=== PATIENT | female | born 1970 | race Caucasian/White ===

== ENCOUNTER 2017-01-02 17:10 | Observation (INO) | payer OTHER ==
--- NOTE | 2017-01-02 18:18 | ED ---
General Adult HPI - General Chief complaint: Extremity Problem,Nontraumatic Stated complaint: rt leg pain Time Seen by Provider: 01/02/17 17:49 Source: patient, RN notes reviewed Mode of arrival: ambulatory Limitations: no limitations - History of Present Illness Initial comments: Patient is a 46-year-old female presents emergency room for right sided flank/ leg pain. Patient states she has a history of fibromyalgia. Patient states she 's been experiencing all over body pain. Patient denies taking any pain medications. Patient states that she's been having issues with her right low back. Patient states the pain radiates into her right leg. 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 Patient states she had surgery about 5 years ago on her kidneys to place a stent. Patient states the plant stent was placed on her right side. Patient states she went to her primary care provider today and they did blood work and sent her home. Patient states that she's been having worsening pain on the right side that radiates into her leg and thought she should be evaluated. Patient states she has been having issues with not urinating as much as usual. Patient states she drinks a lot of water and only urinates a few times a day. Patient states she is supposed to follow-up with a oncology pharmacist in the next few weeks. Patient does state she feels like she has a pressure sensation where her bladder is. Patient denies any other surgeries. Patient denies chest pain or shortness of breath. Patient denies headache or dizziness. Patient denies any pain or burning during urination or blood in urine. - Related Data Home Medications Medication Instructions Recorded Confirmed Clindamycin Topical Soln 1 applic TOPICAL BID 01/02/17 01/02/17 [Cleocin-T Topical Soln] Lisinopril-Hctz 20-12.5 mg 1 tab PO DAILY 01/02/17 01/02/17 [Zestoretic 20-12.5] Loratadine [Claritin] 10 mg PO HS 01/02/17 01/02/17 Ranitidine HCl 150 mg PO DAILY 01/02/17 01/02/17 Allergies Allergy/AdvReac Type Severity Reaction Status Date / Time meperidine [From Demerol] AdvReac Nausea & Verified 01/02/17 22:03 Vomiting Review of Systems ROS Statement: Those systems with pertinent positive or pertinent negative responses have been documented in the HPI. ROS Other: All systems not noted in ROS Statement are negative. Past Medical History Additional Past Medical History / Comment(s): fibromylagia, lupus History of Any Multi-Drug Resistant Organisms: None Reported Past Surgical History: Orthopedic Surgery Additional Past Surgical History / Comment(s): kidney surgery Past Psychological History: No Psychological Hx Reported Smoking Status: Never smoker Past Alcohol Use History: None Reported Past Drug Use History: None Reported General Exam - General Exam Comments Initial Comments: Sitting in exam room, no acute distress. Limitations: no limitations General appearance: alert, in no apparent distress Head exam: Present: atraumatic, normocephalic, normal inspection Eye exam: Present: normal appearance ENT exam: Present: normal exam Neck exam: Present: normal inspection Respiratory exam: Present: normal lung sounds bilaterally. Absent: respiratory distress Cardiovascular Exam: Present: regular rate, normal rhythm, normal heart sounds GI/Abdominal exam: Present: soft, normal bowel sounds. Absent: distended, tenderness, guarding, rebound, rigid Extremities exam: Present: normal inspection Back exam: Present: normal inspection, CVA tenderness (R) Neurological exam: Present: alert, oriented X3 Psychiatric exam: Present: normal affect, normal mood Skin exam: Present: warm, intact Course Vital Signs 01/02/17 01/02/17 01/02/17 17:44 20:52 22:18 Temperature 98.5 F 98.0 F 97.3 F L Pulse Rate 77 68 70 Respiratory 18 18 18 Rate Blood Pressure 155/73 111/65 115/56 O2 Sat by Pulse 99 98 99 Oximetry Medical Decision Making - Medical Decision Making Patient is a 46-year-old female since emergency room for evaluation of right- sided pain. CT abdomen and pelvis ordered to rule out any obstructing stones. CT abdomen/pelvis results mentioned UPJ configuration. Discussed CT results with Radiologist, Jonnie Huerta, and he cannot totally rule out UPJ obstruction without IV contrast with delayed imaging. Discussed results with patient. Patient agreed to another CT abdomen/pelvis with IV contrast. CT abdomen/pelvis with IV contrast shows evidence for right UPJ obstruction. Patient also noted to have leukocytosis. Case discussed with Dr. Riojas. Dr. Riojas discussed case with Dr. Nathan who agreed to admit patient. Patient will be started on 1 g of Rocephin. Patient to consult with urology. Plan discussed with patient. - Lab Data Result diagrams: 01/02/17 18:34 01/02/17 18:34 Lab Results 01/02/17 01/02/17 01/02/17 Range/Units 18:34 18:34 19:10 WBC 13.5 H (3.8-10.6) k/uL RBC 5.76 H (3.80-5.40) m/uL Hgb 14.4 (11.4-16.0) gm/dL Hct 44.1 (34.0-46.0) % MCV 76.6 L (80.0-100.0) fL MCH 25.1 (25.0-35.0) pg MCHC 32.7 (31.0-37.0) g/dL RDW 14.0 (11.5-15.5) % Plt Count 259 (150-450) k/uL Neutrophils % 74 % Lymphocytes % 19 % Monocytes % 3 % Eosinophils % 1 % Basophils % 1 % Neutrophils # 10.0 H (1.3-7.7) k/uL Lymphocytes # 2.6 (1.0-4.8) k/uL Monocytes # 0.5 (0-1.0) k/uL Eosinophils # 0.2 (0-0.7) k/uL Basophils # 0.1 (0-0.2) k/uL Hypochromasia Slight Sodium 139 (137-145) mmol/L Potassium 4.4 (3.5-5.1) mmol/L Chloride 102 (98-107) mmol/L Carbon Dioxide 24 (22-30) mmol/L Anion Gap 13 mmol/L BUN 21 H (7-17) mg/dL Creatinine 0.85 (0.52-1.04) mg/dL Est GFR (MDRD) Af Amer >60 (>60 ml/min/1.73 sqM) Est GFR (MDRD) Non-Af >60 (>60 ml/min/1.73 sqM) Glucose 90 (74-99) mg/dL Calcium 9.8 (8.4-10.2) mg/dL Total Bilirubin 0.6 (0.2-1.3) mg/dL AST 25 (14-36) U/L ALT 39 (9-52) U/L Alkaline Phosphatase 109 (38-126) U/L Total Protein 7.8 (6.3-8.2) g/dL Albumin 4.4 (3.5-5.0) g/dL Urine Color Yellow Urine Appearance Clear (Clear) Urine pH 5.0 (5.0-8.0) Ur Specific [place] 1.014 (1.001-1.035) Urine Protein Negative (Negative) Urine Glucose (UA) Negative (Negative) Urine Ketones Negative (Negative) Urine Blood Small H (Negative) Urine Nitrite Negative (Negative) Urine Bilirubin Negative (Negative) Urine Urobilinogen <2.0 (<2.0) mg/dL Ur Leukocyte Esterase Small H (Negative) Urine RBC 1 (0-5) /hpf Urine WBC 5 (0-5) /hpf Ur Squamous Epith Cells 1 (0-4) /hpf Amorphous Sediment Rare H (None) /hpf Hyaline Casts 1 (0-2) /lpf Urine Mucus Rare H (None) /hpf - Radiology Data Radiology results: report reviewed, image reviewed Disposition Clinical Impression: Obstruction of right ureteropelvic junction (UPJ), Leukocytosis Disposition: ADMITTED IP TO THIS [facility] Condition: Stable Referrals: Corina Ribeiro MD [Primary Care Provider] - 1-2 days Decision Date: 01/02/17
[2017-01-02 18:45] LABS: Basophils # (A) 0.1 k/uL (0-0.2); Basophils % (A) 1 %; CHCM 31.4; Eosinophils # (A) 0.2 k/uL (0-0.7); Eosinophils % (A) 1 %; HCT 44.1 % (34.0-46.0); HDW 2.68; HGB 14.4 gm/dL (11.4-16.0); Hypochromasia Slight; Luc # (Auto) 0.21; Luc % (Auto) 2; Lymphocytes # (A) 2.6 k/uL (1.0-4.8); Lymphocytes % (A) 19 %; MCH 25.1 pg (25.0-35.0); MCHC 32.7 g/dL (31.0-37.0); MCV 76.6 fL (80.0-100.0); Mean Platelet Volume 7.6; Monocytes # (A) 0.5 k/uL (0-1.0); Monocytes % (A) 3 %; Neutrophils % (A) 74 %; RBC 5.76 m/uL (3.80-5.40); WBC 13.5 k/uL (3.8-10.6); WBC (Perox) 13.18
[2017-01-02 19:00] LABS: ALT 39 U/L (9-52); AST 25 U/L (14-36); Alkaline Phosphatase 109 U/L (38-126); Anion Gap 13 mmol/L; Blood Urea Nitrogen 21 mg/dL (7-17); Calcium 9.8 mg/dL (8.4-10.2); Carbon Dioxide 24 mmol/L (22-30); Chloride 102 mmol/L (98-107); Glucose 90 mg/dL (74-99); Non-African American GFR(MDRD) >60 (>60 ml/min/1.73 sqM); Potassium 4.4 mmol/L (3.5-5.1); Sodium 139 mmol/L (137-145); Total Bilirubin 0.6 mg/dL (0.2-1.3); Total Protein 7.8 g/dL (6.3-8.2)
[2017-01-02 19:23] LABS: Amorphous Sediment,Urine Rare /hpf; Appearance,Urine Clear (Clear); Bilirubin,Urine Negative (Negative); Glucose,Urine (UA) Negative (Negative); Ketones,Urine Negative (Negative); Leukocyte Esterase,Urine Small (Negative); Mucus,Urine Rare /hpf; Nitrite,Urine Negative (Negative); Particle Count 1983; Protein,Urine Negative (Negative); RBC,Urine 1 /hpf (0-5); Specific Gravity,Urine 1.014 (1.001-1.035); Squamous Epithelial Cell,Urine 1 /hpf (0-4); UA Billing (MACRO vs. MICRO) MICRO; Urobilinogen,Urine <2.0 mg/dL (<2.0); WBC,Urine 5 /hpf (0-5)
[2017-01-02] MEDS ORDERED: HYDROmorphone 1 MG/ML 1 ML SYRINGE IVP STA (19:58)
--- NOTE | 2017-01-02 20:50 | CT ---
EXAMINATION TYPE: CT abdomen pelvis wo con DATE OF EXAM: 01/02/2017 8:19 PM COMPARISON: NONE AVAILABLE HISTORY: c/o difficulty with urination, right lower extremity pain, hx of lupus CT DLP: 686.1 mGycm. Automated exposure control for dose reduction was used. TECHNIQUE: Helical acquisition of images was performed from the lung bases through the pelvis. FINDINGS: LUNG BASES: No significant abnormality is appreciated. LIVER/GB: No significant abnormality is appreciated. PANCREAS: No significant abnormality is seen. SPLEEN: No significant abnormality is seen. ADRENALS: No significant abnormality is seen. 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 1. There is prominence to the left sided extrarenal collecting system, but no maryuri left hydronephros is or hydroureter. 2. On the right, there is moderate hydronephrosis present in the extrarenal collecting system - with caliber change at the UPJ such that the right ureter is collapsed throughout its extent. These findin gs are consistent with right-sided UPJ configuration. 3. Subtle intraparenchymal calcifications are noted, but no uroliths and no ureteral calcifications o r bladder calcifications. RETROPERITONEAL ADENOPATHY: None visualized REPRODUCTIVE ORGANS: No significant abnormality is seen PELVIC ADENOPATHY: None visualized. OSSEOUS STRUCTURES: No significant abnormality is seen. BOWEL: No significant abnormality is seen. ANTERIOR ABDOMINAL WALL: The anterior abdominal wall is intact. 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
[2017-01-02] MEDS ORDERED: RX INFO: IV CONTRAST WAS GIVEN 1 EACH MISC MISCELLANE PRN (21:13)
[2017-01-02] MEDS ORDERED: ONDANSETRON 4 MG/2 ML VIAL IVP STA (22:14)
--- NOTE | 2017-01-02 22:21 | CT ---
EXAMINATION TYPE: CT abdomen pelvis w con DATE OF EXAM: 01/02/2017 9:54 PM COMPARISON: Precontrast CT earlier today HISTORY: Right-sided abdominal pain with difficulty urinating, hx of renal stents CT DLP: 2401 mGycm. Automated exposure control for dose reduction was used. TECHNIQUE: Helical CT of the kidneys ureters and bladder was obtained for nephrogram, 5 minute urogr am and delayed minute urogram phase following intravenous contrast administration with 100 mL of Omni paque 300. FINDINGS: KIDNEYS URETERS AND BLADDER: The nephrogram phase of renal parenchymal contrast enhancement is unrema rkable. On the 5 minute urogram images there was delayed opacification of the right upper collecting system. On the 10 minute urogram images the left-sided ureter opacifies throughout its extent and a left uret eral jet is visualized within the urinary bladder. However, there is no definite contrast opacificati on of the right ureter from the upper renal moiety or the right ureter from the lower renal moiety. T his delay in contrast excretion is consistent with right-sided UPJ obstruction, which appears mild-mo derate in degree. LUNG BASES: No significant abnormality is appreciated. LIVER/GB: No significant abnormality is appreciated. PANCREAS: No significant abnormality is seen. SPLEEN: No significant abnormality is seen. ADRENALS: No significant abnormality is seen. RETROPERITONEAL ADENOPATHY: None visualized REPRODUCTIVE ORGANS: No significant abnormality is seen PELVIC ADENOPATHY: None visualized. OSSEOUS STRUCTURES: No significant abnormality is seen. BOWEL: No significant abnormality is seen. IMPRESSION: FINDINGS CONSISTENT WITH RIGHT-SIDED UPJ OBSTRUCTION, IN THE SETTING OF HORSESHOE KIDNEY.
[2017-01-02] MEDS ORDERED: ONDANSETRON 4 MG/2 ML VIAL IVP PRN (22:36)
[2017-01-02] MEDS ORDERED: ACETAMINOPHEN TAB 325 MG TAB PO PRN (22:36)
[2017-01-02] MEDS ORDERED: NALOXONE 0.4 MG/ML 1 ML VIAL IV PRN (22:36)
[2017-01-02] MEDS: SODIUM CHLORIDE 0.9% 1,000 ML IV SCH (23:00)
[2017-01-02] MEDS: HYDROmorphone 1 MG/ML 1 ML SYRINGE IV PRN (23:44)
[2017-01-03 00:09] VITALS: BMI 36.5
[2017-01-03] MEDS: HYDROmorphone 1 MG/ML 1 ML SYRINGE IV PRN ×3 (03:47→12:57)
[2017-01-03 07:27] LABS: Basophils # (A) 0.1 k/uL (0-0.2); Basophils % (A) 1 %; CH 23.8; CHCM 30.7; Eosinophils # (A) 0.2 k/uL (0-0.7); Eosinophils % (A) 2 %; HCT 37.9 % (34.0-46.0); HDW 2.66; HGB 12.1 gm/dL (11.4-16.0); Hypochromasia Moderate; Luc # (Auto) 0.22; Luc % (Auto) 2; Lymphocytes # (A) 2.8 k/uL (1.0-4.8); Lymphocytes % (A) 26 %; MCH 24.8 pg (25.0-35.0); MCHC 31.9 g/dL (31.0-37.0); MCV 77.6 fL (80.0-100.0); Mean Platelet Volume 7.1; Monocytes # (A) 0.4 k/uL (0-1.0); Monocytes % (A) 4 %; Neutrophils # (A) 6.9 k/uL (1.3-7.7); Neutrophils % (A) 66 %; RBC 4.89 m/uL (3.80-5.40); RDW 14.1 % (11.5-15.5); WBC 10.6 k/uL (3.8-10.6); WBC (Perox) 10.98
[2017-01-03 07:32] LABS: ALT 36 U/L (9-52); AST 19 U/L (14-36); Alkaline Phosphatase 75 U/L (38-126); Anion Gap 12 mmol/L; Blood Urea Nitrogen 20 mg/dL (7-17); Calcium 8.9 mg/dL (8.4-10.2); Carbon Dioxide 22 mmol/L (22-30); Chloride 104 mmol/L (98-107); Glucose 82 mg/dL (74-99); Non-African American GFR(MDRD) >60 (>60 ml/min/1.73 sqM); Sodium 138 mmol/L (137-145); Total Bilirubin 0.5 mg/dL (0.2-1.3); Total Protein 6.3 g/dL (6.3-8.2)
[2017-01-03] MEDS: SODIUM CHLORIDE 0.9% 1,000 ML IV SCH (09:52)
--- NOTE | 2017-01-03 13:08 | P.HPIM ---
History of Present Illness H&P Date: 01/03/17 (Discharge summary as well) Chief Complaint: Suprapubic pain 46-year-old female with history of a horseshoe kidney status post right-sided hydronephrosis and a nephrostomy placement in the past comes into the hospital with complaints of generalized pain in her lower abdomen and shooting pains down her right lower extremity. Patient states that she was not able to walk with a significant amount of pain in her right lower extremity. Patient states that when she raises her leg exacerbates pain and came into the emergency room for ongoing care. Incidentally patient underwent a computed tomography scan of the abdomen and pelvis for workup of this suprapubic pain which appears to be chronic as patient did state to have a horseshoe kidney patient was noted to have some changes of right-sided hydronephrosis. Kidney function appears to be stable. There is no signs of infection on the UA. Patient denies having any urinary urgency frequency, fevers, chills, nausea, vomiting, exacerbated abdominal pain in the recent times. Patient apparently has a long history of proteinuria. She underwent a lot of this workup in [facility] in the [facility] thereafter has been seeing a physician out of [place] system. 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 Patient also complains of pain in her left and right shoulder especially with raising her hands above her shoulder. Review of Systems All systems: negative (Noted in HPI) Past Medical History Past Medical History: Fibromyalgia, Hypertension, Skin Disorder Additional Past Medical History / Comment(s): lupus History of Any Multi-Drug Resistant Organisms: None Reported Past Surgical History: Orthopedic Surgery Additional Past Surgical History / Comment(s): kidney surgery Past Psychological History: No Psychological Hx Reported Smoking Status: Never smoker Past Alcohol Use History: None Reported Past Drug Use History: None Reported - Past Family History Father Additional Family Medical History / Comment(s): Grandfather from a heart attack, aunt has breast cancer, and grandmother had COPD and type 2 diabetes. Medications and Allergies Home Medications Medication Instructions Recorded Confirmed Type Clindamycin Topical Soln 1 applic TOPICAL BID 01/02/17 01/02/17 History [Cleocin-T Topical Soln] Lisinopril-Hctz 20-12.5 mg 1 tab PO DAILY 01/02/17 01/02/17 History [Zestoretic 20-12.5] Loratadine [Claritin] 10 mg PO HS 01/02/17 01/02/17 History Ranitidine HCl 150 mg PO DAILY 01/02/17 01/02/17 History Allergies Allergy/AdvReac Type Severity Reaction Status Date / Time meperidine [From Demerol] AdvReac Nausea & Verified 01/02/17 22:03 Vomiting Physical Exam Vitals: Vital Signs Temp Pulse Resp BP Pulse Ox 01/03/17 08:35 97.3 F L 60 20 111/62 98 01/03/17 03:45 97.9 F 66 18 120/63 99 01/02/17 23:30 97.3 F L 68 18 124/69 100 Intake and Output 01/02/17 01/03/17 01/03/17 22:59 06:59 14:59 Intake Total 120 Balance 120 Intake: Oral 120 Other: Voiding Method Toilet # Voids 1 Weight 93.6 kg Physical exam Gen. appearance oriented 3 in no distress Neck is supple no JVD Lungs good air entry clear to auscultation no rhonchi or wheezing Heart S1-S2 heard regular rate and rhythm no murmurs appreciated Abdomen is soft nontender no organomegaly bowel sounds are intact some degree of tenderness in the suprapubic region Previous surgical scars noted Musculoskeletal there is definitely decreased range of motion of both the shoulders bilaterally more severe on the left side. Point tenderness noted superiorly around the shoulder joint consistent with supraspinatus tendinitis. Straight leg test is positive on the right lower extremity Neurologically cranial nerves II-12 grossly intact no focal motor or sensory deficits noted Skin no abnormalities appreciated Results CBC & Chem 7: 01/03/17 06:48 01/03/17 06:48 Labs: Abnormal Lab Results - Last 24 Hours (Table) 01/03/17 01/03/17 Range/Units 06:48 06:48 MCV 77.6 L (80.0-100.0) fL MCH 24.8 L (25.0-35.0) pg BUN 20 H (7-17) mg/dL Albumin 3.4 L (3.5-5.0) g/dL Thrombosis Risk Factor Assmnt - Choose All That Apply Each Factor Represents 1 point: Age 41-60 years, Obesity (BMI >25) Thrombosis Risk Factor Assessment Total Risk Factor Score: 2 Thrombosis Risk Factor Assessment Level: Low Risk Assessment and Plan Plan: #1 chronic right-sided hydronephrosis in a patient with horseshoe kidney #2 diagnosis of fibroid myalgia #3 new diagnosis of cutaneous lupus #4 sciatic on the right side #5 bilateral supraspinatus tendinitis #6 hypertension 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 Plan Patient was evaluated by urologist the hydronephrosis apparently was described as chronic. Patient is to continue FIORDALIZA inhibitor for chronic proteinuria that was noted on a prior UA. To continue the same medications. In regards to sciatica patient will be started on fibromyalgia. Patient is also going to start taking oral steroids for cutaneous lupus including a steroid cream and antibiotic cream. Patient is to follow-up with a change control manager and appointment will be made made with Dr. Brink. This was discussed with the patient exercises for the supraspinatus tendinitis were discussed with the patient Patient does not currently work. Did recommend not to use any NSAIDs at this time which could diminish her kidney function. Patient is discharged home in a stable condition
[2017-01-03 13:19] VITALS: BP 116/61; PULSE 62; RESP 16; TEMP 97.7
--- NOTE | 2017-01-03 13:23 | CONS ---
DATE OF CONSULTATION: 01/03/2017 REASON FOR CONSULTATION: Hydronephrosis. Patient is 46-year-old female admitted through the emergency room on 01/02 for evaluation of right flank and right leg pain. Patient also said she had some difficulty in initiating her urine flow and did not feel that she was emptying normally. She was evaluated in the emergency room and had both a noncontrast CT scan of the abdomen and pelvis and a CT scan of the abdomen and pelvis with IV contrast. Patient has known history of horseshoe kidneys. The CT scan showed evidence of mild to moderate right-sided hydronephrosis. The patient was started on Rocephin and was admitted for further evaluation. Since her admission yesterday, the patient says that she actually feels better as far as her right-sided pain. She no longer has any difficulty voiding. She denied any dysuria or hematuria prior to admission and says she has not had a urinary tract infection in several months. Patient says she was diagnosed with horseshoe kidneys at the age of 18 while she was in [place]. She was treated at [facility] and initially was suspected to have appendicitis. She was then found to have hydronephrosis and said she had a percutaneous nephrostomy tube that was left in place for nearly 5 years. She said she also had a double-J stent placed but was uncertain when this was removed. She has not been in [place] for 10 years. She was seen by Dr. Deutsch in August 2016. He set up a CT urogram and a MAG3 renogram. Patient says that these were done in [facility], but she is uncertain as to the results. She says she has an appointment to see Dr. Hansen on 01/12. She also says she has an appointment to see Dr. Brink. Patient's past medical history is significant in regard to fibromyalgia and benign hypertension. Medications on admission included Zestoretic, ranitidine and Claritin. She is allergic to DEMEROL. Review of systems is significant mainly in regard to the above. Patient complained of pain in her right arm, pain on the right side of her head as well as the right-sided abdominal and leg pain at the time of admission, most of this has improved. Physical exam reveals an overweight 46-year-old female who is alert and oriented. Afebrile. Blood pressure 111/62. HEENT: No supraclavicular or cervical adenopathy. CHEST: Breathing is unlabored. ABDOMEN: Obese. No focal tenderness. There is no flank tenderness to palpation. Laboratory evaluation on admission included a white blood count of 13,500. Urinalysis showed a small amount of leukocyte esterase and hemoglobin but only 1 red cell and 5 white blood cells, some mucus was also noted. BUN/creatinine on 01/02 was 21/0.85. BUN/creatinine today is 20/0.81. I personally reviewed the patient's CT scan of the abdomen and pelvis, which was performed with and without IV contrast. The patient has horseshoe kidneys with what appears to be chronic bilateral hydronephrosis. The drainage on the right side appears to be worse than the left but it is unclear whether this a chronic finding. It is also unclear whether there is any obstruction, which remains as the patient may have had a procedure done on the ureteropelvic junction at the age of 18. RECOMMENDATION: The patient has an appointment to be evaluated by another urologist on 01/12 and I do not feel that she needs further urologic evaluation prior to that. I told her she should take a copy of her most recent CT scan on a DVD so that her urologist can compare it with the previous studies done in August. Thank you for allowing me to participate in the care of this patient. JOHANNE
== END 2017-01-03 16:03 | disposition home or self-care (01) ==
LOC: EC 17:10 → 6PED 22:45
PROVIDERS: ADMIT Internal Medicine; ATTEND Internal Medicine
DX: N13.1 Hydronephrosis with ureteral stricture, not elsewhere classified (principal); Q63.1 Lobulated, fused and horseshoe kidney; M54.31 Sciatica, right side; D72.829 Elevated white blood cell count, unspecified; E66.3 Overweight; I10 Essential (primary) hypertension; L98.9 Disorder of the skin and subcutaneous tissue, unspecified; M77.9 Enthesopathy, unspecified; M79.7 Fibromyalgia; Q38.5 Congenital malformations of palate, not elsewhere classified; Z88.5 Allergy status to narcotic agent; M79.604 Pain in right leg; Z79.899 Other long term (current) drug therapy; Z79.2 Long term (current) use of antibiotics; R10.30 Lower abdominal pain, unspecified; R80.9 Proteinuria, unspecified
CPT/HCPCS: 96375 ×3; 99284 ×2; 51798; 36415; 80053 ×2; 85025 ×2; 81001; 74176; 74177; G0378 ×2; J2405; J0696; J1170 ×2; Q9967; 96361; 96376

== ENCOUNTER → 2018-03-07 | Outpatient (CLI) | payer OTHER ==
[~2018-03-07] MED LIST: FUROSEMIDE 10 MG/ML 2 ML VIAL IV ONE
--- NOTE | 2018-03-08 13:04 | NM ---
EXAMINATION TYPE: NM lasix renogram DATE OF EXAM: 03/08/2018 COMPARISON: NONE HISTORY: Horseshoe kidney. History of renal stones. Difficulty urinating. Following administration of 9.3 mCi Tc 99m MAG3 with 20mg Lasix. Immediate images post injection FINDINGS: Left: 48.8 %. Right: 51.2 %. Max renal flow left: 19 minutes. Max renal flow right: 51.2 minutes. Satisfactory accumulation of radiotracer within both renal collecting systems. After the administrati on of Lasix, there is prompt excretion from both collecting systems. T 1/2 left: unable to determine T 1/2, kidneys never excreted to T1/2 during 30 minute acquisition T 1/2 right: unable to determine T 1/2, kidneys never excreted to T1/2 during 30 minute acquisition IMPRESSION: Abnormal and markedly delayed excretion from both renal pelvises in this patient with hor seshoe kidney as T1/2 was never reached during 30 minute acquisition. Functional obstruction is suspe cted versus less likely mechanical obstruction. Split function is within normal limits in the estimat ed region of interest of the left kidney versus right kidney.
== END | disposition home or self-care (01) ==
LOC: RADNMMAIN 14:31
PROVIDERS: ATTEND Urology
DX: Q63.1 Lobulated, fused and horseshoe kidney (principal); N13.39 Other hydronephrosis
CPT/HCPCS: 78708; A9562